=== PATIENT | male | born 1980 | race Caucasian/White ===

== ENCOUNTER 2022-10-14 07:16 | Outpatient (CLI) | payer BC, SELFPAY ==
--- NOTE | 2022-10-14 08:00 | CRLHL7_ITS ---
For Patients: As a result of the Century Cures Act, medical imaging exams and procedure reports are released immediately into your electronic medical record. You may view this report before your referring provider. If you have questions, please contact your health care provider. Indication: LLQ ABD PAIN X 4 DAYS. Technique: Postcontrast CT abdomen and pelvis. 121 cc Isovue 370 intravenous contrast. Please note that all CT scans at this facility use dose modulation, iterative reconstruction, and/or weight-based dosing when appropriate to reduce radiation dose to as low as reasonably achievable. Comparison: None Findings: Mild atelectasis is present within the left lower lobe. No pleural effusion. No free intraperitoneal air. Small cysts are present within the liver measuring up to 2.1 cm. The gallbladder is absent. No biliary obstruction. The spleen is within normal limits. Normal pancreas. Adrenal glands normal. Multiple left renal cysts, measuring up to 2.8 cm. No solid renal mass. No hydronephrosis. Tiny 5 millimeter or less cysts are present within the right kidney. The bladder is normal. Normal prostate. Mild colonic diverticulosis. Mild inflammatory changes are present anterior to the sigmoid colon. There is an area fat density associated with the stranding. Normal appendix. No abscess or free air. No free fluid or bowel obstruction. No adenopathy. Mild chronic mesenteric panniculitis incidentally noted within the central mesenteric fat. Posterior spurring at L5-S1. No fracture. Impression: Mild inflammatory changes anterior to the sigmoid colon with an area of fat density suggesting appendagitis. Adjacent diverticular are noted which do not appear inflamed. No abscess. Please note that all CT scans at this facility use dose modulation, iterative reconstruction, and/or weight-based dosing when appropriate to reduce radiation dose to as low as reasonably achievable. Dictated by Steve Gipson MD @ 10/14/2022 10:51:00 AM (Electronically Signed)
== END 2022-10-14 07:17 | disposition home or self-care (01) ==
LOC: CT 07:18
PROVIDERS: PCP Family Medicine; Visit Provider Family Medicine
DX: R10.32 Left lower quadrant pain (principal)
CPT/HCPCS: 74177; Q9967

== ENCOUNTER 2023-01-13 10:12 | Outpatient (CLI) | payer BC, SELFPAY | END 2023-01-13 10:13 | disposition home or self-care (01) | PROVIDERS: PCP Family Medicine; Visit Provider Family Medicine | DX: Z00.00 Encounter for general adult medical examination without abnormal findings (principal); E78.5 Hyperlipidemia, unspecified; I10 Essential (primary) hypertension; R10.32 Left lower quadrant pain; Z11.59 Encounter for screening for other viral diseases | CPT/HCPCS: 80053; 80061; 86803 ==

== ENCOUNTER 2023-03-30 19:32 | Outpatient (CLI) | payer BC, SELFPAY ==
--- NOTE | 2023-04-01 13:10 | P.SLS_ITS ---
Sleep Study Details Details Interpreting Provider: Anisha Date of Sleep Study: 03/30/23 Sleep Study Details: STUDY TYPE:? Home unattended ? BMI:? 35.1 ORDERING PROVIDER:Leah Hermosillo INDICATION:? Concerns about sleep apnea ? SLEEP SUMMARY:? 466.5 minutes monitored RESPIRATORY SUMMARY:? AHI 11.7, supine 16.4, left lateral 5.5, right lateral 12.8 Low oxygen 84 12.5% of study oxygen less than 90% Snoring 35.6% PERIODIC LIMB MOVEMENTS OF SLEEP:? Not recorded during home study CARDIAC:? Range 52-109, mean 71.1 beats per minute IMPRESSION:? Mild obstructive sleep apnea with significant desaturations RECOMMENDATION: Treatment options include weight loss, dental appliance, CPAP AutoSet 4-17 and/or airway expansion surgery. Once effective therapy is esta blished would recommend an overnight oximetry study.
== END 2023-03-30 19:33 | disposition home or self-care (01) ==
LOC: SLEEP 19:33
PROVIDERS: PCP Family Medicine; Visit Provider Family Medicine
DX: G47.33 Obstructive sleep apnea (adult) (pediatric) (principal)
CPT/HCPCS: 95806

== ENCOUNTER 2024-03-15 07:23 | Outpatient (CLI) | payer BC, SELFPAY | END 2024-03-15 07:24 | disposition home or self-care (01) | PROVIDERS: PCP Family Medicine; Visit Provider Family Medicine | DX: Z00.00 Encounter for general adult medical examination without abnormal findings (principal); E78.5 Hyperlipidemia, unspecified; I10 Essential (primary) hypertension; F41.9 Anxiety disorder, unspecified | CPT/HCPCS: 80053; 80061; 82043; 82570 ==

== ENCOUNTER 2025-05-15 07:36 | Outpatient (CLI) | payer BC, SELFPAY | END 2025-05-15 07:37 | disposition home or self-care (01) | PROVIDERS: PCP Family Medicine; Visit Provider Family Medicine | DX: E78.5 Hyperlipidemia, unspecified (principal); I10 Essential (primary) hypertension; R73.09 Other abnormal glucose; R79.89 Other specified abnormal findings of blood chemistry | CPT/HCPCS: 80053; 80061; 82043; 82570; G0103 ==